=== PATIENT | female | born 1955 | race Native Hawaiian/Other Pacific Islander ===

== ENCOUNTER 2016-12-05 05:49 | Emergency (ER) | payer OTHER ==
[2016-12-05 07:14] LABS: Basophils % (Auto) 1.2 % (0.0-1.8); Hematocrit 40.7 % (30.3-42.9); Hemoglobin 13.5 gm/dl (10.1-14.3); Mean Corpuscular HGB Conc 33 % (30-34); Mean Corpuscular Hemoglobin 29 pg (28-32); Mean Corpuscular Volume 87 fl (79-97); Platelet Count 202 K/mm3 (140-440); Red Blood Count 4.67 M/mm3 (3.65-5.03); Red Cell Distribution Width 13.3 % (13.2-15.2)
[2016-12-05 07:24] LABS: INR 0.87 (0.87-1.13)
[2016-12-05 07:25] LABS: Partial Thromboplastin Time 27.6 Sec. (24.2-36.6)
--- NOTE | 2016-12-05 07:33 | Cat Scan Report ---
FINAL REPORT PROCEDURE: CT HEAD/BRAIN WO CON TECHNIQUE: Computerized tomography of the head was performed without contrast material. HISTORY: HTN, Headache, dizzy, blurred vision, COMPARISON: None FINDINGS: Brain volume is age appropriate. The white matter is intact. There is no intra or extra-axial hemorrhage. There is no CT evident acute infarction. There is no remote infarct. There is no mass effect or shift of midline structures. There is no gross mass or leptomeningeal abnormality given limitation of lack of IV contrast. The skull base and calvarium are intact. Partially visualized paranasal sinuses, mastoid air cells and middle ears are clear. IMPRESSION: No CT evident acute intracranial process
[2016-12-05 07:41] LABS: Bilirubin,Urine NEG (Negative); Blood,Urine NEG (Negative); Ketones,Urine NEG (Negative); Leukocyte Esterase,Urine TR (Negative); Mucus,Urine FEW /HPF; Nitrite,Urine NEG (Negative); Protein,Urine <15 mg/dL mg/dL (Negative); Urobilinogen,Urine < 2.0 mg/dL (<2.0)
[2016-12-05 08:07] LABS: Alanine Aminotransferase 18 units/L (7-56); Albumin 3.9 g/dL (3.9-5); Albumin/Globulin Ratio 1.1 %; Alkaline Phosphatase 108 units/L (35-129); Anion Gap 18 mmol/L; Blood Urea Nitrogen 24 mg/dL (7-17); Calcium 8.9 mg/dL (8.4-10.2); Carbon Dioxide 22 mmol/L (22-30); Chloride 104.2 mmol/L (98-107); Glucose 100 mg/dL (65-100); Lipase 32 units/L (13-60); Potassium 3.8 mmol/L (3.6-5.0); Sodium 140 mmol/L (137-145); Total Protein 7.4 g/dL (6.3-8.2)
--- NOTE | 2016-12-05 10:46 | Emergency Department Report ---
HPI - General Chief Complaint: High BP Time Seen by Provider: 12/05/16 09:36 - HPI HPI: This is a 61-year-old female presents to the emergency department with multiple complaints. The patient has been having some dizziness, shortness of breath, palpitations, paresthesias and posterior headache. The symptoms appeared to worsen when she gets hot or it is hot outside. Also, over the past 3-4 days, patient says that her blood pressure is been elevated. The symptoms appeared to have worsened since the patient had a change in the dose of her Paxil. She takes Paxil as well as hydrochlorothiazide as chronic medications and follows up with a physician through [facility]. She denies any vision change, slurred speech, vomiting, abdominal pain or any neurological deficits. She denies any history of OH, CVA, PE/DVT. The patient currently says that she feels improved. She took some Motrin for her symptoms prior to presentation. No recent travel or sick contacts at home. ED Past Medical Hx - Past Medical History Previous Medical History?: Yes Hx Hypertension: Yes - Surgical History Past Surgical History?: No - Social History Smoking Status: Never Smoker Substance Use Type: None - Medications Home Medications: Home Medications Medication Instructions Recorded Confirmed Last Taken Type ALPRAZolam [Xanax TAB] 0.5 mg PO BID PRN #10 tab 12/05/16 Unknown Rx ED Review of Systems ROS: Stated complaint: HYPERTENSION/HIGH BP Other details as noted in HPI Comment: All other systems reviewed and negative Constitutional: denies: chills, weakness Eyes: denies: eye pain, eye discharge ENT: denies: ear pain, throat pain Respiratory: shortness of breath. denies: cough, wheezing Cardiovascular: chest pain, palpitations. denies: edema Gastrointestinal: denies: abdominal pain, vomiting Genitourinary: denies: urgency, dysuria, discharge Musculoskeletal: denies: back pain, joint swelling, arthralgia Skin: denies: rash, lesions Neurological: headache, paresthesias. denies: weakness, numbness, confusion Physical Exam - Physical Exam Vital Signs: Vital Signs 12/05/16 12/05/16 12/05/16 06:35 09:20 09:38 Temperature 98.7 F 98.3 F Pulse Rate 65 54 L Respiratory 14 12 12 Rate Blood Pressure 143/96 148/76 [Right] O2 Sat by Pulse 100 100 100 Oximetry Physical Exam: GENERAL: The patient is well-developed well-nourished. HEENT: Normocephalic. Atraumatic. Extraocular motions are intact. Patient has moist mucous membranes. Pupils equal reactive to light bilaterally. NECK: Supple. Trachea is midline. CHEST/LUNGS: Clear to auscultation. There is no respiratory distress noted. HEART/CARDIOVASCULAR: Regular. There is no tachycardia. There is no gallop rub or murmur. ABDOMEN: Abdomen is soft, nontender. Patient has normal bowel sounds. There is no abdominal distention. SKIN: Skin is warm and dry. NEURO: The patient is awake, alert, and oriented. The patient is cooperative. The patient has no focal neurologic deficits. The patient has normal speech. Cranial nerves II through XII grossly intact. MUSCULOSKELETAL: There is no tenderness or deformity. There is no limitation range of motion. There is no evidence of acute injury. Muscle strength 5 out of 5 for upper and lower extremities bilaterally. ED Course Vital Signs 12/05/16 12/05/16 12/05/16 06:35 09:20 09:38 Temperature 98.7 F 98.3 F Pulse Rate 65 54 L Respiratory 14 12 12 Rate Blood Pressure 143/96 148/76 [Right] O2 Sat by Pulse 100 100 100 Oximetry ED Medical Decision Making - Lab Data Result diagrams: 12/05/16 06:52 12/05/16 06:52 - EKG Data -: EKG Interpreted by Me EKG shows normal: sinus rhythm (with premature supraventricular complexes), axis , intervals, QRS complexes, ST-T waves Rate: bradycardia (54 bpm) - EKG Data When compared to previous EKG there are: previous EKG unavailable Interpretation: normal EKG (with premature supraventricular complexes) - Radiology Data Radiology results: report reviewed, image reviewed interpreted by me: Chest x-ray did not show any acute process. Heart is normal shape and size. No effusions. No pneumothorax. No signs of pneumonia seen. CT of the head does not show any acute process including no hemorrhage, mass, shift, diffuse edema or skull fracture. - Medical Decision Making 61-year-old female presents with multiple complaints including posterior headache, intermittent chest pains, shortness of breath, feelings of nervousness, dizziness. However on physical examination the patient does not appear to be toxic or in any acute distress. Heart and lungs sounds are normal to auscultation. Cranial nerves are intact. No focal, motor or sensory deficits. EKG is normal without ST elevation OH, ischemia or dysrhythmia. Labs are unremarkable including no signs of infection in the blood or urine, normal thyroid function, no electrolyte abnormalities or renal insufficiency and negative troponins 2. It is possible that the area is some component of anxiety. Patient currently denies any chest pain or shortness of breath. She was seen in the door in the emergency department and appears stable. She appears safe for discharge home at this time. Vital signs stable throughout ED course. She was given a referral for cardiology and already has a primary care physician. She will return to the ER with any worsening of her symptoms or any acute distress. - Differential Diagnosis OH, costochondritis, anxiety, tension headache, migraine Critical Care Time: No Critical care attestation.: If time is entered above; I have spent that time in minutes in the direct care of this critically ill patient, excluding procedure time. ED Disposition Clinical Impression: Paresthesias, Anxiety Headache Qualifiers: Headache type: unspecified Headache chronicity pattern: unspecified pattern Intractability: not intractable Qualified Code(s): R51 - Headache Chest pain Qualifiers: Chest pain type: unspecified Qualified Code(s): R07.9 - Chest pain, unspecified Disposition: DC- TO HOME OR SELFCARE Is pt being admited?: No Condition: Stable Instructions: Chest Pain (ED), Acute Headache (ED), Paresthesia (ED), Anxiety ( ED) Additional Instructions: Please follow-up with your primary care physician in the next few days. I have given you a referral for a local music adapter, to follow-up regarding your intermittent chest pains. Return to the emergency department immediately with any worsening of your symptoms or any acute distress. You've been prescribed a medication that is sedating. Therefore this medication cannot be mixed with alcohol, or taken prior to driving, working, or being responsible for children. Prescriptions: ALPRAZolam [Xanax TAB] 0.5 mg PO BID PRN #10 tab PRN Reason: Anxiety Referrals: PRIMARY CARE, [Primary Care Provider] - 3-5 Days ELENA MAX MD [Staff Physician] - 3-5 Days Time of Disposition: 11:43
[2016-12-05 12:39] VITALS: BP 140/83
--- NOTE | 2016-12-05 14:39 | XRay Report ---
FINAL REPORT PROCEDURE: XR CHEST ROUTINE 2V TECHNIQUE: PA and lateral views of the chest are submitted. HISTORY: Shortness of breath COMPARISON: None FINDINGS: The trachea is midline. The heart is normal in size. The lungs are clear. There is no evident pneumothorax or pleural fluid. The thoracic cage is intact. Mild degenerative thoracic kyphosis is present. IMPRESSION: No radiographically evident acute cardiopulmonary disease
== END 2016-12-05 12:15 | disposition home or self-care (01) ==
LOC: ED 05:49
DX: F41.9 Anxiety disorder, unspecified (principal); R20.9 Unspecified disturbances of skin sensation; I10 Essential (primary) hypertension
CPT/HCPCS: 36415; 70450; 71020; 80053; 81001; 83690; 84443; 84484; 85025; 85610; 85730; 93005; 93010; 99285

== ENCOUNTER 2020-08-05 10:39 | Emergency (ER) | payer SELFPAY ==
[2020-08-05] MEDS ORDERED: SODIUM CHLORIDE 0.9% 1000 ML 1,000 ML IV ONE (10:52)
--- NOTE | 2020-08-05 10:54 | Event Note ---
ED Screening Note Date of service: 08/05/20 Time: 10:53 ED Screening Note: 65-year-old female presents with complaints of cough, chest pain, back pain, diarrhea, intermittent abdominal pain and nausea for the past couple days. She had a negative Covid test. Patient does have a low-grade temperature of 100.6 in triage but she is not tachypneic or hypotensive or hypoxic. This initial assessment/diagnostic orders/clinical plan/treatment(s) is/are subject to change based on patients health status, clinical progression and re- assessment by fellow clinical providers in the ED. Further treatment and workup at subsequent clinical providers discretion. Patient/guardian urged not to elope from the ED as their condition may be serious if not clinically assessed and managed. Initial orders include: CBC, CMP, EKG, troponin, chest x-ray, urinalysis
[2020-08-05 10:55] VITALS: BP 141/87
[2020-08-05 11:19] LABS: Basophils % (Auto) 0.4 % (0.0-1.8); Hematocrit 45.5 % (30.3-42.9); Hemoglobin 15.2 gm/dl (10.1-14.3); Lymphocytes # (Auto) 0.9 K/mm3 (1.2-5.4); Mean Corpuscular HGB Conc 33 % (30-34); Mean Corpuscular Volume 86 fl (79-97); Monocytes # (Auto) 0.3 K/mm3 (0.0-0.8); Monocytes % (Auto) 6.2 % (0.0-7.3); Platelet Count 175 K/mm3 (140-440); Red Blood Count 5.28 M/mm3 (3.65-5.03); Red Cell Distribution Width 13.6 % (13.2-15.2)
[2020-08-05 11:40] LABS: Alanine Aminotransferase 13 units/L (7-56); Albumin 3.5 g/dL (3.9-5); BUN/Creatinine Ratio 13; Blood Urea Nitrogen 14 mg/dL (7-17); Calcium 8.7 mg/dL (8.4-10.2); Hemolysis Index 5
[2020-08-05] MEDS ORDERED: ACETAMINOPHEN 325 MG TAB PO ONE (11:54)
--- NOTE | 2020-08-05 11:54 | Emergency Department Report ---
ED General Adult HPI - General Chief complaint: Fever Stated complaint: CHEST PAINS Time Seen by Provider: 08/05/20 11:25 Source: family Mode of arrival: Ambulatory Limitations: Language Barrier - History of Present Illness Initial comments: Patient is a 65-year-old female presents emergency department for evaluation of dry cough, body aches, nausea without abdominal pain and fevers x1 week. Patient was seen by her primary care doctor who prescribed her omeprazole and antihypertensives. Patient presents for persistent symptoms despite home medication. Patient had Covid test which was resulted as negative with a second test results pending. Patient denies sore throat, denies chest pain, denies vomiting or diarrhea. Patient denies dysuria. - Related Data Previous Rx's Medication Instructions Recorded Last Taken Type ALPRAZolam [Xanax TAB] 0.5 mg PO BID PRN #10 tab 12/05/16 Unknown Rx Cholecalciferol (Vitamin D3) 5,000 unit PO DAILY #60 capsule 08/05/20 Unknown Rx [Vitamin D3 5,000 UNIT] Allergies Allergy/AdvReac Type Severity Reaction Status Date / Time No Known Allergies Allergy Verified 12/05/16 06:32 ED Review of Systems ROS: Stated complaint: CHEST PAINS Other details as noted in HPI Comment: All other systems reviewed and negative ED Past Medical Hx - Past Medical History Previous Medical History?: Yes Hx Hypertension: Yes - Surgical History Past Surgical History?: No - Social History Smoking Status: Never Smoker Substance Use Type: None - Medications Home Medications: Home Medications Medication Instructions Recorded Confirmed Last Taken Type ALPRAZolam [Xanax TAB] 0.5 mg PO BID PRN #10 tab 12/05/16 Unknown Rx Cholecalciferol (Vitamin D3) 5,000 unit PO DAILY #60 capsule 08/05/20 Unknown Rx [Vitamin D3 5,000 UNIT] ED Physical Exam - General Limitations: Language Barrier General appearance: alert, in no apparent distress - Head Head exam: Present: atraumatic, normocephalic - Eye Eye exam: Present: normal appearance - ENT ENT exam: Present: mucous membranes moist - Neck Neck exam: Present: normal inspection - Respiratory Respiratory exam: Present: normal lung sounds bilaterally. Absent: respiratory distress - Cardiovascular Cardiovascular Exam: Present: regular rate, normal rhythm. Absent: systolic murmur, diastolic murmur, rubs, gallop - GI/Abdominal GI/Abdominal exam: Present: soft, normal bowel sounds - Extremities Exam Extremities exam: Present: normal inspection - Back Exam Back exam: Present: normal inspection - Neurological Exam Neurological exam: Present: alert, oriented X3 - Psychiatric Psychiatric exam: Present: normal affect, normal mood - Skin Skin exam: Present: warm, dry, intact, normal color. Absent: rash ED Course Vital Signs 08/05/20 08/05/20 10:53 12:53 Temperature 100.6 F H Pulse Rate 88 Respiratory 18 18 Rate Blood Pressure 141/87 O2 Sat by Pulse 98 Oximetry - Reevaluation(s) Reevaluation #1: 08/05/20 13:10 Patient treated with IV NS 1 L x 1 and Tylenol p.o. ED Medical Decision Making - Lab Data Result diagrams: 08/05/20 11:03 08/05/20 11:03 Vital Signs 08/05/20 08/05/20 10:53 12:53 Temperature 100.6 F H Pulse Rate 88 Respiratory 18 18 Rate Blood Pressure 141/87 O2 Sat by Pulse 98 Oximetry Labs 08/05/20 08/05/20 08/05/20 11:03 11:03 11:36 WBC 4.7 RBC 5.28 H Hgb 15.2 H Hct 45.5 H MCV 86 MCH 29 MCHC 33 RDW 13.6 Plt Count 175 Lymph % (Auto) 20.0 [place] % (Auto) 6.2 Eos % (Auto) 0.0 Baso % (Auto) 0.4 Lymph # (Auto) 0.9 L [place] # (Auto) 0.3 Eos # (Auto) 0.0 Baso # (Auto) 0.0 Seg Neutrophils % 73.4 H Seg Neutrophils # 3.4 Sodium 134 L Potassium 3.8 Chloride 100.4 Carbon Dioxide 24 Anion Gap 13 BUN 14 Creatinine 1.1 Estimated GFR 50 BUN/Creatinine Ratio 13 Glucose 101 H Calcium 8.7 Total Bilirubin 0.40 AST 24 ALT 13 Alkaline Phosphatase 92 Troponin T < 0.010 Total Protein 7.1 Albumin 3.5 L Albumin/Globulin Ratio 1.0 Lipase 33 Urine Color Urine Turbidity Urine pH Ur Specific [place] Urine Protein Urine Glucose (UA) Urine Ketones Urine Blood Urine Nitrite Urine Bilirubin Urine Urobilinogen Ur Leukocyte Esterase Urine WBC (Auto) Urine RBC (Auto) U Epithel Cells (Auto) Urine Mucus 08/05/20 12:48 WBC RBC Hgb Hct MCV MCH MCHC RDW Plt Count Lymph % (Auto) [place] % (Auto) Eos % (Auto) Baso % (Auto) Lymph # (Auto) [place] # (Auto) Eos # (Auto) Baso # (Auto) Seg Neutrophils % Seg Neutrophils # Sodium Potassium Chloride Carbon Dioxide Anion Gap BUN Creatinine Estimated GFR BUN/Creatinine Ratio Glucose Calcium Total Bilirubin AST ALT Alkaline Phosphatase Troponin T Total Protein Albumin Albumin/Globulin Ratio Lipase Urine Color Yellow Urine Turbidity Clear Urine pH 5.0 Ur Specific [place] 1.015 Urine Protein 30 mg/dl Urine Glucose (UA) Neg Urine Ketones Neg Urine Blood Neg Urine Nitrite Neg Urine Bilirubin Neg Urine Urobilinogen < 2.0 Ur Leukocyte Esterase Neg Urine WBC (Auto) 2.0 Urine RBC (Auto) 1.0 U Epithel Cells (Auto) < 1.0 Urine Mucus Few - EKG Data -: EKG Interpreted by Me (Sinus rhythm at 80, no ST-T changes, normal QRS) - Radiology Data Radiology results: report reviewed Chest x-ray negative per radiology Critical care attestation.: If time is entered above; I have spent that time in minutes in the direct care of this critically ill patient, excluding procedure time. ED Disposition Clinical Impression: Upper respiratory infection Disposition: DC-01 TO HOME OR SELFCARE Is pt being admited?: No Condition: Stable Instructions: Upper Respiratory Infection, Adult, [id number] Prescriptions: Cholecalciferol (Vitamin D3) [Vitamin D3 5,000 UNIT] 5,000 unit PO DAILY #60 capsule Referrals: PRIMARY CARE, [Primary Care Provider] - 3-5 Days Print Language: CHINESE
--- NOTE | 2020-08-05 12:06 | XRay Report ---
CHEST 1 VIEW 08/05/2020 11:48 AM INDICATION / CLINICAL INFORMATION: Cough. COMPARISON: 12/05/2016 FINDINGS: SUPPORT DEVICES: None. HEART / MEDIASTINUM: No significant abnormality. LUNGS / PLEURA: No significant pulmonary or pleural abnormality. No pneumothorax. ADDITIONAL FINDINGS: No significant additional findings. IMPRESSION: 1. No acute findings. Signer Name: Arben Degroot MD Signed: 08/05/2020 12:01 PM Workstation Name: [id number]
[2020-08-05 13:01] LABS: Bilirubin,Urine NEG (Negative); Blood,Urine NEG (Negative); Color,Urine Yellow (Yellow); Mucus,Urine FEW /HPF; Urobilinogen,Urine < 2.0 mg/dL (<2.0)
== END 2020-08-05 15:06 | disposition home or self-care (01) ==
LOC: ED 10:39
DX: J06.9 Acute upper respiratory infection, unspecified (principal); I10 Essential (primary) hypertension; Z79.899 Other long term (current) drug therapy
CPT/HCPCS: 36415; 71045; 80053; 81001; 83690; 84484; 85025; 93005; 96360; 96361; 99284; J7030

== ENCOUNTER 2020-08-07 07:28 | Emergency (ER) | payer SELFPAY ==
--- NOTE | 2020-08-07 07:36 | Emergency Department Report ---
Blank Doc - Documentation Documentation: 65 yr old with pmhx of htn c/o chest pain/back pain/sob; was found to be COVID + yesterday Orders include: Chest pain order set
[2020-08-07] MEDS ORDERED: ACETAMINOPHEN 500 MG TAB PO ONE (07:47)
[2020-08-07] MEDS ORDERED: SODIUM CHLORIDE 0.9% 1000 ML 1,000 ML IV ONE (07:47)
--- NOTE | 2020-08-07 07:48 | Emergency Department Report ---
ED General Adult HPI - General Chief complaint: Chest Pain Stated complaint: COVID POSITIVE/CHEST PAIN Time Seen by Provider: 08/07/20 07:46 Source: patient Mode of arrival: Ambulatory Limitations: No Limitations - History of Present Illness Initial comments: Patient is a 65-year-old female presents emergency department for evaluation of mild vague diffuse chest discomfort and dry cough in the context of recent Covid positive testing as outpatient. Patient denies shortness of breath, complains of tactile fever, denies sore throat, denies abdominal pain, denies nausea vomiting diarrhea. - Related Data Previous Rx's Medication Instructions Recorded Last Taken Type ALPRAZolam [Xanax TAB] 0.5 mg PO BID PRN #10 tab 12/05/16 Unknown Rx Cholecalciferol (Vitamin D3) 5,000 unit PO DAILY #60 capsule 08/05/20 Unknown Rx [Vitamin D3 5,000 UNIT] Azithromycin [Zithromax TAB] 250 mg PO QDAY 4 Days #4 tablet 08/07/20 Unknown Rx predniSONE [Deltasone] 40 mg PO QDAY #8 tablet 08/07/20 Unknown Rx Allergies Allergy/AdvReac Type Severity Reaction Status Date / Time No Known Allergies Allergy Verified 08/07/20 07:30 ED Review of Systems ROS: Stated complaint: COVID POSITIVE/CHEST PAIN Other details as noted in HPI Comment: All other systems reviewed and negative ED Past Medical Hx - Past Medical History Hx Hypertension: Yes - Social History Smoking Status: Never Smoker Substance Use Type: None - Medications Home Medications: Home Medications Medication Instructions Recorded Confirmed Last Taken Type ALPRAZolam [Xanax TAB] 0.5 mg PO BID PRN #10 tab 12/05/16 Unknown Rx Cholecalciferol (Vitamin D3) 5,000 unit PO DAILY #60 capsule 08/05/20 Unknown Rx [Vitamin D3 5,000 UNIT] Azithromycin [Zithromax TAB] 250 mg PO QDAY 4 Days #4 tablet 08/07/20 Unknown Rx predniSONE [Deltasone] 40 mg PO QDAY #8 tablet 08/07/20 Unknown Rx ED Physical Exam - General Limitations: No Limitations General appearance: alert, in no apparent distress - Head Head exam: Present: atraumatic, normocephalic - Eye Eye exam: Present: normal appearance - ENT ENT exam: Present: mucous membranes moist - Neck Neck exam: Present: normal inspection - Respiratory Respiratory exam: Present: normal lung sounds bilaterally - Cardiovascular Cardiovascular Exam: Present: regular rate, normal rhythm - GI/Abdominal GI/Abdominal exam: Present: soft, normal bowel sounds - Extremities Exam Extremities exam: Present: normal inspection - Back Exam Back exam: Present: normal inspection - Neurological Exam Neurological exam: Present: alert, oriented X3 - Psychiatric Psychiatric exam: Present: normal affect, normal mood - Skin Skin exam: Present: warm, dry, intact, normal color. Absent: rash ED Course Vital Signs 08/07/20 08/07/20 08/07/20 07:32 07:33 08:36 Temperature 100.7 F H 100.7 F H Pulse Rate 125 H 124 H 94 H Respiratory 22 20 19 Rate Blood Pressure 128/95 128/95 Blood Pressure 134/74 [Left] O2 Sat by Pulse 95 95 98 Oximetry 08/07/20 08/07/20 08/07/20 08:45 09:01 09:15 Temperature Pulse Rate 89 65 64 Respiratory 13 13 15 Rate Blood Pressure 126/71 Blood Pressure [Left] O2 Sat by Pulse 99 100 98 Oximetry 08/07/20 09:43 Temperature 99.5 F Pulse Rate Respiratory Rate Blood Pressure Blood Pressure [Left] O2 Sat by Pulse Oximetry - Reevaluation(s) Reevaluation #1: 08/07/20 14:44 Patient treated with IV NS and Tylenol p.o. with resolution of tachycardia. Repeat pulse 69. Reevaluation #2: 08/07/20 14:45 Treated with azithromycin 500 mg p.o. x1 ED Medical Decision Making - Lab Data Result diagrams: 08/07/20 08:25 08/07/20 08:25 Lab Results 08/07/20 08/07/20 Range/Units 08:25 08:25 WBC 5.9 (4.5-11.0) K/mm3 RBC 5.13 H (3.65-5.03) M/mm3 Hgb 14.7 H (10.1-14.3) gm/dl Hct 43.3 H (30.3-42.9) % MCV 84 (79-97) fl MCH 29 (28-32) pg MCHC 34 (30-34) % RDW 13.9 (13.2-15.2) % Plt Count 198 (140-440) K/mm3 Lymph % (Auto) 12.5 L (13.4-35.0) % [place] % (Auto) 5.8 (0.0-7.3) % Eos % (Auto) 0.0 (0.0-4.3) % Baso % (Auto) 0.2 (0.0-1.8) % Lymph # (Auto) 0.7 L (1.2-5.4) K/mm3 [place] # (Auto) 0.3 (0.0-0.8) K/mm3 Eos # (Auto) 0.0 (0.0-0.4) K/mm3 Baso # (Auto) 0.0 (0.0-0.1) K/mm3 Seg Neutrophils % 81.5 H (40.0-70.0) % Seg Neutrophils # 4.8 (1.8-7.7) K/mm3 Sodium 139 (137-145) mmol/L Potassium 3.6 (3.6-5.0) mmol/L Chloride 102.7 (98-107) mmol/L Carbon Dioxide 25 (22-30) mmol/L Anion Gap 15 mmol/L BUN 8 (7-17) mg/dL Creatinine 0.8 (0.6-1.2) mg/dL Estimated GFR > 60 ml/min BUN/Creatinine Ratio 10 % Glucose 110 H (65-100) mg/dL Calcium 8.8 (8.4-10.2) mg/dL Total Bilirubin 0.50 (0.1-1.2) mg/dL AST 27 (5-40) units/L ALT 14 (7-56) units/L Alkaline Phosphatase 90 (35-129) units/L Troponin T < 0.010 (0.00-0.029) ng/mL Total Protein 7.3 (6.3-8.2) g/dL Albumin 3.7 L (3.9-5) g/dL Albumin/Globulin Ratio 1.0 % Lipase 32 (13-60) units/L Vital Signs 08/07/20 08/07/20 08/07/20 07:32 07:33 08:36 Temperature 100.7 F H 100.7 F H Pulse Rate 125 H 124 H 94 H Respiratory 22 20 19 Rate Blood Pressure 128/95 128/95 Blood Pressure 134/74 [Left] O2 Sat by Pulse 95 95 98 Oximetry 03/04/1908/07/20 08/07/20 08:45 09:01 09:15 Temperature Pulse Rate 89 65 64 Respiratory 13 13 15 Rate Blood Pressure 126/71 Blood Pressure [Left] O2 Sat by Pulse 99 100 98 Oximetry 08/07/20 09:43 Temperature 99.5 F Pulse Rate Respiratory Rate Blood Pressure Blood Pressure [Left] O2 Sat by Pulse Oximetry - EKG Data -: EKG Interpreted by Me (ST at 103, (-) ST-T changes, normal QRs) - Radiology Data Radiology results: report reviewed <HTML><META HTTP-EQUIV="content-type" CONTENT="text/html;charset=utf-8"> [facility] [address] [place] [address] XRay Report Signed Patient: HETAL HOLLAND MR#: [id number] : 1955 Acct:[id number] Age/Sex: 65 / F ADM Date: 08/07/20 Loc: ED Attending Dr: Ordering Physician: TANVI ELMORE Date of Service: 08/07/20 Procedure(s): XR chest 1V ap Accession Number(s): [id number] cc: TANVI ELMORE Fluoro Time In Minutes: CHEST 1 VIEW INDICATION: Covid +/chest pain/sob. COMPARISON: 2 days prior FINDINGS: SUPPORT DEVICES: None. HEART: Within normal limits. LUNGS/PLEURA: Although mild, there is worsened patchy bibasilar airspace dis ease. No effusion. ADDITIONAL FINDINGS: None. IMPRESSION: 1. Pulmonary findings as above can be seen with Covid pneumonia. Signer Name: Thee Newell MD Signed: 08/07/2020 8:41 AM Workstation Name: [id number] Transcribed By: BEBETO Dictated By: Thee Newell MD Electronically Authenticated By: Thee Newell MD Signed Date/Time: 08/07/20 0841 Critical care attestation.: If time is entered above; I have spent that time in minutes in the direct care of this critically ill patient, excluding procedure time. ED Disposition Clinical Impression: Pneumonia due to COVID-19 virus Disposition: DC- TO HOME OR SELFCARE Is pt being admited?: No Condition: Stable Instructions: COVID-19 Frequently Asked Questions, Prevent the Spread of COVID- 19 if You Are Sick - CDC, Bacterial Pneumonia (ED) Prescriptions: predniSONE [Deltasone] 40 mg PO QDAY #8 tablet Azithromycin [Zithromax TAB] 250 mg PO QDAY 4 Days #4 tablet Referrals: PRIMARY CARE,MD [Primary Care Provider] - 3-5 Days Print Language: ARMENIAN
[2020-08-07 08:45] LABS: Basophils % (Auto) 0.2 % (0.0-1.8); Hematocrit 43.3 % (30.3-42.9); Hemoglobin 14.7 gm/dl (10.1-14.3); Lymphocytes # (Auto) 0.7 K/mm3 (1.2-5.4); Lymphocytes % (Auto) 12.5 % (13.4-35.0); Mean Corpuscular HGB Conc 34 % (30-34); Mean Corpuscular Volume 84 fl (79-97); Monocytes # (Auto) 0.3 K/mm3 (0.0-0.8); Monocytes % (Auto) 5.8 % (0.0-7.3); Platelet Count 198 K/mm3 (140-440); Red Blood Count 5.13 M/mm3 (3.65-5.03); Red Cell Distribution Width 13.9 % (13.2-15.2)
--- NOTE | 2020-08-07 08:46 | XRay Report ---
CHEST 1 VIEW INDICATION: Covid +/chest pain/sob. COMPARISON: 2 days prior FINDINGS: SUPPORT DEVICES: None. HEART: Within normal limits. LUNGS/PLEURA: Although mild, there is worsened patchy bibasilar airspace disease. No effusion. ADDITIONAL FINDINGS: None. IMPRESSION: 1. Pulmonary findings as above can be seen with Covid pneumonia. Signer Name: Thee Newell MD Signed: 08/07/2020 8:41 AM Workstation Name: [id number]
[2020-08-07 09:07] LABS: Alanine Aminotransferase 14 units/L (7-56); Albumin 3.7 g/dL (3.9-5); BUN/Creatinine Ratio 10; Blood Urea Nitrogen 8 mg/dL (7-17); Calcium 8.8 mg/dL (8.4-10.2); Hemolysis Index 6
[2020-08-07] MEDS ORDERED: predniSONE 20 MG TAB PO ONE (09:20)
[2020-08-07] MEDS ORDERED: AZITHROMYCIN 250 MG TAB PO ONE (09:20)
[2020-08-07 09:43] VITALS: BP 126/71
== END 2020-08-07 09:45 | disposition home or self-care (01) ==
LOC: ED 07:28
DX: J12.82 Pneumonia due to coronavirus disease 2019 (principal); I10 Essential (primary) hypertension; Z79.899 Other long term (current) drug therapy
CPT/HCPCS: 36415; 71045; 80053; 83690; 84484; 85025; 93005; 96360; 99284; J7030; J7512

== ENCOUNTER 2020-08-09 22:03 | Observation (INO) | payer OTHER, SELFPAY ==
--- NOTE | 2020-08-09 23:26 | Emergency Department Report ---
ED Shortness of Breath HPI - General Chief Complaint: Chest Pain Stated Complaint: HIGH BLOOD PRESSURE Time Seen by Provider: 08/09/20 23:09 Source: patient Mode of arrival: Ambulatory Limitations: No Limitations - History of Present Illness Initial Comments: Patient is 65 years old female with history of hypertension. Patient presented to the ER complaining of shortness of breath, diffuse chest pain and dry cough for the last 5 days. Patient stated that her symptoms get worse last night. Patient was seen here twice and sent home. Patient tested positive for COVID-19 6 days ago. Chest x-ray in the ER for both results showed bilateral lower lobe infiltrates consistent with COVID-19 however the last chest x-ray showed worsening of the infiltration. Patient also complaining of decreased appetite however she denied any vomiting or diarrhea. MD Complaint: shortness of breath, cough, chest pain -: days(s) Severity: moderate Context: recent URI - Related Data Home Medications Medication Instructions Recorded Confirmed Last Taken Losartan [Cozaar] 25 mg PO QDAY 08/11/20 08/11/20 Unknown Previous Rx's Medication Instructions Recorded Last Taken Type ALPRAZolam [Xanax TAB] 0.5 mg PO BID PRN #10 tab 12/05/16 Unknown Rx Cholecalciferol (Vitamin D3) 5,000 unit PO DAILY #60 capsule 08/05/20 Unknown Rx [Vitamin D3 5,000 UNIT] Azithromycin [Zithromax TAB] 250 mg PO QDAY 4 Days #4 tablet 08/07/20 Unknown Rx predniSONE [Deltasone] 40 mg PO QDAY #8 tablet 08/07/20 Unknown Rx Allergies Allergy/AdvReac Type Severity Reaction Status Date / Time No Known Allergies Allergy Verified 08/07/20 07:30 ED Review of Systems ROS: Stated complaint: HIGH BLOOD PRESSURE Other details as noted in HPI Comment: All other systems reviewed and negative Constitutional: chills, fever Respiratory: cough, shortness of breath, SOB with exertion, SOB at rest. denies: orthopnea, wheezing Cardiovascular: chest pain. denies: palpitations Gastrointestinal: nausea. denies: abdominal pain, vomiting, diarrhea, constipation, hematemesis, melena, hematochezia Musculoskeletal: denies: back pain Neurological: denies: headache, weakness, numbness, paresthesias, confusion ED Past Medical Hx - Past Medical History Previous Medical History?: Yes Hx Hypertension: Yes Hx Psychiatric Treatment: Yes (Anxiety) Additional medical history: Chronic Pain - Surgical History Past Surgical History?: No - Social History Smoking Status: Never Smoker Substance Use Type: None - Medications Home Medications: Home Medications Medication Instructions Recorded Confirmed Last Taken Type ALPRAZolam [Xanax TAB] 0.5 mg PO BID PRN #10 tab 12/05/16 08/11/20 Unknown Rx Cholecalciferol (Vitamin D3) 5,000 unit PO DAILY #60 capsule 08/05/20 08/11/20 Unknown Rx [Vitamin D3 5,000 UNIT] Azithromycin [Zithromax TAB] 250 mg PO QDAY 4 Days #4 tablet 08/07/20 08/11/20 Unknown Rx predniSONE [Deltasone] 40 mg PO QDAY #8 tablet 08/07/20 08/11/20 Unknown Rx Losartan [Cozaar] 25 mg PO QDAY 08/11/20 08/11/20 Unknown History ED Physical Exam - General Limitations: No Limitations General appearance: alert, anxious, in distress - Head Head exam: Present: atraumatic, normocephalic, normal inspection - Eye Eye exam: Present: normal appearance, PERRL - ENT ENT exam: Present: mucous membranes dry - Neck Neck exam: Present: normal inspection, full ROM. Absent: tenderness, meningismus - Respiratory Respiratory exam: Present: rales, decreased breath sounds. Absent: respiratory distress, prolonged expiratory - Cardiovascular Cardiovascular Exam: Present: regular rate, normal rhythm, normal heart sounds - GI/Abdominal GI/Abdominal exam: Present: soft, normal bowel sounds. Absent: distended, tenderness, guarding, rebound, rigid, organomegaly, mass, bruit, pulsatile mass, hernia - Extremities Exam Extremities exam: Present: normal inspection, full ROM, normal capillary refill. Absent: pedal edema, calf tenderness - Back Exam Back exam: Present: normal inspection, full ROM. Absent: CVA tenderness (R), CVA tenderness (L) - Neurological Exam Neurological exam: Present: alert, oriented X3, CN II-XII intact - Psychiatric Psychiatric exam: Present: normal mood - Skin Skin exam: Present: warm, intact, normal color ED Course Vital Signs 08/09/20 08/10/20 08/10/20 22:09 00:00 03:10 Temperature 99.3 F 98.9 F Pulse Rate 76 78 Respiratory 18 20 20 Rate Blood Pressure 142/90 Blood Pressure 144/89 [Left] O2 Sat by Pulse 96 96 Oximetry ED Medical Decision Making - Lab Data Result diagrams: 08/11/20 05:32 08/11/20 05:32 - EKG Data -: EKG Interpreted by Me EKG shows normal: sinus rhythm Rate: normal - EKG Data Interpretation: no acute changes - Radiology Data Radiology results: report reviewed - Medical Decision Making Patient is 65 years old female with history of hypertension. Patient presented to the ER complaining of shortness of breath, diffuse chest pain and dry cough for the last 5 days. Patient stated that her symptoms get worse last night. Patient was seen here twice and sent home. Patient tested positive for COVID-19 6 days ago. Chest x-ray in the ER for both results showed bilateral lower lobe infiltrates consistent with COVID-19 however the last chest x-ray showed worsening of the infiltration. Patient also complaining of decreased appetite however she denied any vomiting or diarrhea. EKG is unremarkable. Chest x-ray showed bilateral lower lobe infiltrate consistent with COVID-19 pneumonia. Patient received Rocephin 1 g, Zithromax 500 mg and Decadron 8 mg IV. Labs reviewed and is unremarkable. I discussed the patient with Dr. Laird, he agreed to admit the patient to medical service for further management. Critical care attestation.: If time is entered above; I have spent that time in minutes in the direct care of this critically ill patient, excluding procedure time. ED Disposition Clinical Impression: Pneumonia due to COVID-19 virus Disposition: OP ADMIT IP TO THIS HOSP Is pt being admited?: Yes Condition: Stable
--- NOTE | 2020-08-09 23:38 | XRay Report ---
XR chest 1V ap INDICATION / CLINICAL INFORMATION: Chest Pain. COMPARISON: Radiograph from two days prior. FINDINGS: SUPPORT DEVICES: None. HEART / MEDIASTINUM: Unchanged. LUNGS / PLEURA: Persistent left midlung zone and right basilar opacities which appear mildly improved . No pneumothorax. ADDITIONAL FINDINGS: No significant additional findings. IMPRESSION: 1. Persistent but mildly improved airspace disease. Signer Name: Clyde Harmon MD Signed: 08/09/2020 11:33 PM Workstation Name: [id number]
[2020-08-10 01:06] LABS: BUN/Creatinine Ratio 23; Blood Urea Nitrogen 23 mg/dL (7-17); Calcium 8.3 mg/dL (8.4-10.2); Hemolysis Index 6
[2020-08-10 01:09] LABS: Basophils % (Auto) 0.1 % (0.0-1.8); Hematocrit 39.6 % (30.3-42.9); Hemoglobin 13.5 gm/dl (10.1-14.3); Lymphocytes # (Auto) 1.3 K/mm3 (1.2-5.4); Lymphocytes % (Auto) 16.6 % (13.4-35.0); Mean Corpuscular HGB Conc 34 % (30-34); Mean Corpuscular Volume 85 fl (79-97); Monocytes # (Auto) 0.6 K/mm3 (0.0-0.8); Monocytes % (Auto) 7.7 % (0.0-7.3); Platelet Count 243 K/mm3 (140-440); Red Blood Count 4.67 M/mm3 (3.65-5.03); Red Cell Distribution Width 13.7 % (13.2-15.2)
[2020-08-10 01:20] LABS: INR 1.02 (0.87-1.13)
[2020-08-10 01:21] LABS: Partial Thromboplastin Time 26.9 Sec. (24.2-36.6)
[2020-08-10] MEDS ORDERED: ACETAMINOPHEN 325 MG TAB PO PRN (03:05)
[2020-08-10] MEDS ORDERED: MORPHINE 2 MG/1 ML INJ IV PRN (03:05)
[2020-08-10] MEDS ORDERED: MAGNESIUM HYDROXIDE (MOM) ORAL LIQD UDC PO PRN (03:05)
--- NOTE | 2020-08-10 03:17 | History and Physical Report ---
History of Present Illness Date of examination: 08/10/20 Date of admission: 08/10/20 01:41 Chief complaint: Shortness of breath Cough History of present illness: 65-year-old female with known history of hypertension and anxiety presenting to the emergency room today complaining of shortness of breath, cough dry cough and some chest pain over the last 5 days. Patient has been in the emergency room on 2 occasions with similar complaints and sent to my for evaluation. He was diagnosed with COVID-19 less than a week ago and chest x-ray done in the ER showed bilateral lower lobe infiltrates consistent with COVID-19. Patient is here today complaining of worsening symptoms. She has had decreased appetite. She denies any vomiting or diarrhea. No abdominal pain. Work-up today, chest x-ray reveals persistent but mildly improved airspace disease. Patient has been admitted with pneumonia secondary to COVID-19. Past History Past Medical History: hypertension, other (Anxiety, chronic pain) Past Surgical History: No surgical history Social history: no significant social history Family history: no significant family history Medications and Allergies Allergies Allergy/AdvReac Type Severity Reaction Status Date / Time No Known Allergies Allergy Verified 08/07/20 07:30 Home Medications Medication Instructions Recorded Confirmed Last Taken Type ALPRAZolam [Xanax TAB] 0.5 mg PO BID PRN #10 tab 12/05/16 08/10/20 Unknown Rx Cholecalciferol (Vitamin D3) 5,000 unit PO DAILY #60 capsule 08/05/20 08/10/20 Unknown Rx [Vitamin D3 5,000 UNIT] Azithromycin [Zithromax TAB] 250 mg PO QDAY 4 Days #4 tablet 08/07/20 08/10/20 Unknown Rx predniSONE [Deltasone] 40 mg PO QDAY #8 tablet 08/07/20 08/10/20 Unknown Rx Active Meds: Active Medications Acetaminophen (Acetaminophen 325 Mg Tab) 650 mg PO Q4H PRN PRN Reason: Pain MILD(1-3)/Fever >100.5/ESPINO Enoxaparin Sodium (Enoxaparin 40 Mg/0.4 Ml Inj) 40 mg SUB-Q QDAY@2200 SILVIA; Protocol Ceftriaxone Sodium (Rocephin/Ns 2 Gm/100 Ml) 2 gm in 100 mls @ 200 mls/hr IV Q24H SILVIA; Protocol Azithromycin (Zithromax/Ns) 500 mg in 250 mls @ 250 mls/hr IV Q24H SILVIA; Protoco l Magnesium Hydroxide (Magnesium Hydroxide (Mom) Oral Liqd Udc) 30 ml PO Q4H PRN PRN Reason: Constipation Morphine Sulfate (Morphine 2 Mg/1 Ml Inj) 2 mg IV Q4H PRN PRN Reason: Pain, Moderate (4-6) Ondansetron HCl (Ondansetron 4 Mg/2 Ml Inj) 4 mg IV Q8H PRN PRN Reason: Nausea And Vomiting Sodium Chloride (Sodium Chloride 0.9% 10 Ml Flush Syringe) 10 ml IV BID SILVIA Sodium Chloride (Sodium Chloride 0.9% 10 Ml Flush Syringe) 10 ml IV PRN PRN PRN Reason: LINE FLUSH Review of Systems Constitutional: fever, chills Ears, nose, mouth and throat: no nasal congestion, no sore throat Cardiovascular: no chest pain, no palpitations Respiratory: no cough, no dyspnea on exertion Exam - Constitutional Vitals: Temp Pulse Resp BP Pulse Ox 98.9 F 78 20 144/89 96 08/10/20 03:10 08/10/20 03:10 08/10/20 03:10 08/10/20 03:10 08/10/20 03:10 General appearance: Present: no acute distress, well-nourished - EENT Eyes: Present: PERRL, EOM intact. Absent: scleral icterus ENT: hearing intact, clear oral mucosa, dentition normal - Neck Neck: Present: supple, normal ROM - Respiratory Respiratory effort: normal Respiratory: bilateral: diminished - Cardiovascular Rhythm: regular Heart Sounds: Present: S1 & S2. Absent: systolic murmur, diastolic murmur, rub, click - Extremities Extremities: no ischemia, pulses intact, pulses symmetrical, No edema, normal temperature, normal color, Full ROM Extremity abnormal: edema, cyanosis - Abdominal General gastrointestinal: Present: soft, non-tender, non-distended, normal bowel sounds. Absent: mass - Integumentary Integumentary: Present: clear, warm, dry. Absent: rash - Musculoskeletal Musculoskeletal: strength equal bilaterally - Psychiatric Psychiatric: appropriate mood/affect, intact judgment & insight, memory intact, cooperative - Neurologic Neurologic: CNII-XII intact, no focal deficits, moves all extremities HEART Score - HEART Score Troponin: Troponin T < 0.010 ng/mL (0.00-0.029) 08/09/20 23:53 Results - Labs CBC & Chem 7: 08/09/20 23:53 08/10/20 03:22 Labs: Abnormal lab results 08/09/20 08/09/20 Range/Units 23:53 23:53 [place] % (Auto) 7.7 H (0.0-7.3) % Seg Neutrophils % 75.6 H (40.0-70.0) % Potassium 3.4 L (3.6-5.0) mmol/L BUN 23 H (7-17) mg/dL Calcium 8.3 L (8.4-10.2) mg/dL Assessment and Plan - Patient Problems (1) Pneumonia due to COVID-19 virus Current Visit: Yes Status: Acute Plan to address problem: Patient admitted and placed on antibiotics and steroid. She has been placed on isolation precautions. We will consult to infectious disease for evaluation. (2) DVT prophylaxis Current Visit: Yes Status: Acute Plan to address problem: Patient placed on subcutaneous Lovenox. (3) Full code status Current Visit: Yes Status: Acute Plan to address problem: Patient is full code.
[2020-08-10] MEDS ORDERED: AZITHROMYCIN/NS 500 MG/250 ML 500 MG/250 ML BAG IV SCH (04:00)
[2020-08-10 04:29] LABS: C-Reactive Protein 3.3 mg/dL (0.00-1.30)
[2020-08-10] MEDS: cefTRIAXone/NS 2 GM/100 ML 2 GM/100 ML BAG IV SCH (04:44)
--- NOTE | 2020-08-10 11:10 | Event Note ---
Date: 08/10/20 Patient was seen and evaluated this morning. Patient admitted for PUI. Patient was off oxygen. Patient has some nausea. Patient was admitted earlier this morning and continue management as outlined in HPI. Follow Covid result.
[2020-08-10] MEDS: ONDANSETRON 4 MG/2 ML INJ IV PRN ×2 (11:29→21:43)
--- NOTE | 2020-08-10 11:50 | Consultation ---
History of Present Illness - Reason for Consult Consult date: 08/10/20 COVID Requesting physician: CHRIS BERUMEN - History of Present Illness The patient is a 65-year-old female with hypertension and anxiety was admitted to the hospital with complaints of shortness of breath and cough for 5 days. She had been to the emergency room prior with similar complaints. Chest x-ray showed findings concerning for bilateral pneumonia concerning for COVID-19. She has low-grade fever, currently is on room air. Labs revealed CRP 3.3, ferritin 496, LDH 334, D-dimer 612, normal WBC Review of Systems: reviewed in the chart, unable to obtain, minimize risk of transmission Past History Past Medical History: hypertension, other (Anxiety, chronic pain) Past Surgical History: No surgical history Social history: no significant social history Family history: no significant family history Medications and Allergies Allergies Allergy/AdvReac Type Severity Reaction Status Date / Time No Known Allergies Allergy Verified 08/07/20 07:30 Home Medications Medication Instructions Recorded Confirmed Last Taken Type ALPRAZolam [Xanax TAB] 0.5 mg PO BID PRN #10 tab 12/05/16 08/10/20 Unknown Rx Cholecalciferol (Vitamin D3) 5,000 unit PO DAILY #60 capsule 08/05/20 08/10/20 Unknown Rx [Vitamin D3 5,000 UNIT] Azithromycin [Zithromax TAB] 250 mg PO QDAY 4 Days #4 tablet 08/07/20 08/10/20 Unknown Rx predniSONE [Deltasone] 40 mg PO QDAY #8 tablet 08/07/20 08/10/20 Unknown Rx Active Meds: Active Medications Acetaminophen (Acetaminophen 325 Mg Tab) 650 mg PO Q4H PRN PRN Reason: Pain MILD(1-3)/Fever >100.5/ESPINO Enoxaparin Sodium (Enoxaparin 40 Mg/0.4 Ml Inj) 40 mg SUB-Q QDAY@2200 SILVIA; Protocol Ceftriaxone Sodium (Rocephin/Ns 2 Gm/100 Ml) 2 gm in 100 mls @ 200 mls/hr IV Q24H SILVIA; Protocol Last Admin: 08/10/20 04:44 Dose: 200 mls/hr Documented by: Azithromycin (Zithromax/Ns) 500 mg in 250 mls @ 250 mls/hr IV Q24H SILVIA; Protocol Last Admin: 08/10/20 05:20 Dose: 250 mls/hr Documented by: Magnesium Hydroxide (Magnesium Hydroxide (Mom) Oral Liqd Udc) 30 ml PO Q4H PRN PRN Reason: Constipation Morphine Sulfate (Morphine 2 Mg/1 Ml Inj) 2 mg IV Q4H PRN PRN Reason: Pain, Moderate (4-6) Ondansetron HCl (Ondansetron 4 Mg/2 Ml Inj) 4 mg IV Q8H PRN PRN Reason: Nausea And Vomiting Last Admin: 08/10/20 11:29 Dose: 4 mg Documented by: Sodium Chloride (Sodium Chloride 0.9% 10 Ml Flush Syringe) 10 ml IV BID SILVIA Last Admin: 08/10/20 11:29 Dose: 10 ml Documented by: Sodium Chloride (Sodium Chloride 0.9% 10 Ml Flush Syringe) 10 ml IV PRN PRN PRN Reason: LINE FLUSH Physical Examination - Physical Exam Narrative exam: Physical Exam (reviewed in chart to minimize risk of transmission) Constitutional: deferred Head, Ears, Nose: deferred Eyes: deferred Neck: deferred Oral: deferred Cardiovascular: deferred Respiratory: deferred GI: deferred Musculoskeletal: deferred Skin: deferred Hem/Lymphatic: deferred Psych: deferred Neurological: deferred - Constitutional Vitals: Vital Signs Temp Pulse Resp BP Pulse Ox 98.5 F 59 L 18 152/78 98 08/10/20 04:13 08/10/20 04:13 08/10/20 04:13 08/10/20 04:13 08/10/20 04:13 Temperature -Last 24 Hours Temperature 98.5 F Temperature 98.9 F Temperature 99.3 F Results - Labs CBC & Chem 7: 08/09/20 23:53 08/10/20 03:22 Labs: Abnormal lab results 08/09/20 08/09/20 08/10/20 Range/Units 23:53 23:53 03:22 [place] % (Auto) 7.7 H (0.0-7.3) % Seg Neutrophils % 75.6 H (40.0-70.0) % D-Dimer 612.51 H (0-234) ng/mlDDU Potassium 3.4 L (3.6-5.0) mmol/L BUN 23 H (7-17) mg/dL Calcium 8.3 L (8.4-10.2) mg/dL Ferritin (10.0-200.0) ng/mL Lactate Dehydrogenase (91-180) units/L C-Reactive Protein (0.00-1.30) mg/dL 08/10/20 08/10/20 Range/Units 03:22 03:22 [place] % (Auto) (0.0-7.3) % Seg Neutrophils % (40.0-70.0) % D-Dimer (0-234) ng/mlDDU Potassium (3.6-5.0) mmol/L BUN (7-17) mg/dL Calcium (8.4-10.2) mg/dL Ferritin 496.7 H (10.0-200.0) ng/mL Lactate Dehydrogenase 334 H (91-180) units/L C-Reactive Protein 3.30 H (0.00-1.30) mg/dL - Imaging and Cardiology Chest x-ray: report reviewed, image reviewed Assessment and Plan Cultures: SARS CoV2 PCR: Pending A/P: 65-year-old female with hypertension and anxiety: #Bilateral pneumonia: Likely secondary to COVID-19. Patient not hypoxic. Recs: -Follow-up COVID-19 PCR -Monitor oxygen saturations, if patient develops hypoxia requiring supplemental oxygen, would initiate steroids and remdesivir -Follow-up procalcitonin, if low, discontinue antibiotics -prophylactic anticoagulation based on d-dimer per hospital protocol -trend ferritin, LDH, d-dimer, CRP every 2-3 days for risk stratification and to assess disease progression Farrukh Medina MD, FACP [facility] ([facility]) O: [phone] F: [phone]
[2020-08-10] MEDS ORDERED: ENOXAPARIN 40 MG/0.4 ML INJ SUB-Q SCH (22:00)
[2020-08-11 04:17] VITALS: BP 142/83
[2020-08-11] MEDS: cefTRIAXone/NS 2 GM/100 ML 2 GM/100 ML BAG IV SCH ×2 (05:26→05:40)
[2020-08-11 05:53] LABS: Basophils % (Auto) 0.2 % (0.0-1.8); Eosinophils % (Auto) 0.2 % (0.0-4.3); Hemoglobin 13.8 gm/dl (10.1-14.3); Lymphocytes # (Auto) 1.3 K/mm3 (1.2-5.4); Lymphocytes % (Auto) 17.9 % (13.4-35.0); Mean Corpuscular HGB Conc 35 % (30-34); Mean Corpuscular Volume 84 fl (79-97); Monocytes # (Auto) 0.6 K/mm3 (0.0-0.8); Monocytes % (Auto) 7.8 % (0.0-7.3); Platelet Count 253 K/mm3 (140-440); Red Blood Count 4.65 M/mm3 (3.65-5.03); Red Cell Distribution Width 13.7 % (13.2-15.2)
[2020-08-11 06:05] LABS: INR 0.99 (0.87-1.13)
[2020-08-11 07:09] LABS: BUN/Creatinine Ratio 20; Blood Urea Nitrogen 18 mg/dL (7-17); Calcium 8.8 mg/dL (8.4-10.2); Hemolysis Index 2
[2020-08-11] MEDS ORDERED: AZITHROMYCIN 250 MG TAB PO SCH (10:00)
[2020-08-11] MEDS ORDERED: ALBUTEROL 2.5 MG/3 ML NEBU IH PRN (11:12)
[2020-08-11] MEDS: ONDANSETRON 4 MG/2 ML INJ IV PRN (11:53)
--- NOTE | 2020-08-11 12:06 | Progress Note ---
Assessment and Plan Cultures: SARS CoV2 PCR: Positive A/P: 65-year-old female with hypertension and anxiety: #Bilateral pneumonia: Likely secondary to COVID-19. Patient not hypoxic. #COVID-19: Not hypoxic, no indication for therapy at the present time. Recs: -Monitor oxygen saturations, if patient develops hypoxia requiring supplemental oxygen, would initiate steroids and remdesivir -Follow-up procalcitonin, if low, discontinue antibiotics. Still pending -prophylactic anticoagulation based on d-dimer per hospital protocol -trend ferritin, LDH, d-dimer, CRP every 2-3 days for risk stratification and to assess disease progression Charla Shah MD [facility] ([facility]) O: [phone] F: [phone] Subjective Date of service: 08/11/20 Interval history: Afebrile, normal white count. Covid PCR positive. Objective - Exam Narrative Exam: Physical exam deferred due to PPE conservation strategy. Please refer to primary team's note. - Constitutional Vitals: Vital Signs Temp Pulse Resp BP Pulse Ox 98.2 F 58 L 18 142/83 96 08/11/20 04:16 08/11/20 04:16 08/11/20 04:16 08/11/20 04:16 08/11/20 11:08 Temperature -Last 24 Hours Temperature 98.2 F Temperature 98.2 F - Labs CBC & Chem 7: 08/11/20 05:32 08/11/20 05:32 Labs: Abnormal lab results 08/10/20 08/11/20 08/11/20 Range/Units Unknown 05:32 05:32 MCHC 35 H (30-34) % [place] % (Auto) 7.8 H (0.0-7.3) % Seg Neutrophils % 73.9 H (40.0-70.0) % Sodium 146 H (137-145) mmol/L Potassium 3.5 L (3.6-5.0) mmol/L Chloride 108.3 H (98-107) mmol/L BUN 18 H (7-17) mg/dL Coronavirus (PCR) Positive A (Negative)
--- NOTE | 2020-08-11 13:26 | Discharge Summary ---
Providers - Providers Date of Admission: 08/10/20 01:41 Attending physician: HAL PAREKH MD 08/10/20 03:05 Consult to Physician [CONS] Routine Comment: Consulting Provider: TANK VASQUEZ Physician Instructions: Reason For Exam: Pneumonia, Covid-19 positive Primary care physician: [facility]ACHIN[facility] Hospitalization Reason for admission: Shortness of breath Condition: Stable Hospital course: 65-year-old female with known history of hypertension and anxiety presenting to the emergency room today complaining of shortness of breath, cough dry cough and some chest pain over the last 5 days. Patient has been in the emergency room on 2 occasions with similar complaints and sent to my for evaluation. He was diagnosed with COVID-19 less than a week ago and chest x-ray done in the ER showed bilateral lower lobe infiltrates consistent with COVID- 19. Patient is here today complaining of worsening symptoms. She has had decreased appetite. She denies any vomiting or diarrhea. No abdominal pain. Work-up today, chest x-ray reveals persistent but mildly improved airspace disease. Patient has been admitted with pneumonia secondary to COVID-19. Patient this morning has clinically improved. She has some nausea but no further vomiting I did advise her on the importance of eating appropriately and stay with soft diet at this time. I also spoke to family member by member Srinivas morrison. She was seen by ID with no recommendation for oxygen at this time remdesivir or steroids. I discussed extensively with the patient about signs to watch for and also to obtain a pulse oximetry and monitor oxygen level. And if less than 90% to come to the ER. Acute gastroenteritis likely secondary to COVID-19 COVID-19 pneumonia without hypoxia Bilateral pneumonia likely viral Anxiety Disposition: DC-01 TO HOME OR SELFCARE Final Discharge Diagnosis (Prints w/discharge instructions): COVID-19 related gastroenteritis Time spent for discharge: 35 mins Core Measure Documentation - Palliative Care Palliative Care/ Comfort Measures: Not Applicable - Core Measures Any of the following diagnoses?: none Exam - Physical Exam Narrative exam: VITAL SIGNS: Reviewed. GENERAL: The patient appears normally developed, Vital signs as documented. HEAD: No signs of head trauma. EYES: Pupils are equal. Extraocular motions intact. EARS: Hearing grossly intact. MOUTH: Oropharynx is normal. NECK: No adenopathy, no JVD. CHEST: Chest with clear breath sounds bilaterally. No wheezes, rales, or rhonchi. CARDIAC: Regular rate and rhythm. S1 and S2, without murmurs, gallops, or rubs. VASCULAR: No Edema. Peripheral pulses normal and equal in all extremities. ABDOMEN: Soft, non tender and non distended. No rebound or guarding, and no masses palpated. Bowel Sounds normal. MUSCULOSKELETAL: Good range of motion of all major joints. Extremities without clubbing, cyanosis or edema. NEUROLOGIC EXAM: Alert and oriented x 3 No focal sensory or strength deficits. Speech normal. Follows commands. PSYCHIATRIC: Mood normal. SKIN: detail exam as documented in skin assessment - Constitutional Vitals: Temp Pulse Resp BP Pulse Ox 98.2 F 58 L 18 142/83 96 08/11/20 04:16 08/11/20 04:16 08/11/20 04:16 08/11/20 04:16 08/11/20 11:08 Plan Activity: advance as tolerated, fall precautions Diet: low fat (Soft diet) Special Instructions: record daily weights, record daily BP diary, record blood sugar diary Additional Instructions: Continue to wear your mask and social distance. Follow up with: PRIMARY CARE, [Primary Care Provider] - 3-5 Days TG BETANCUR MD [Staff Physician] - 7 Days Prescriptions: Ascorbic Acid [Vitamin C] 500 mg PO BID #60 tablet Azithromycin [Zithromax TAB] 500 mg PO QDAY #5 tablet Ondansetron [Zofran Odt] 4 mg PO Q8HR #30 tab.[email or web address]
== END 2020-08-11 14:15 | disposition home or self-care (01) ==
LOC: ED 22:03 → 3A 08-10 01:41 → INTOOBSV 08-10 01:41
PROVIDERS: ADMIT Internal Medicine Geriatric Medicine; ATTEND Internal Medicine
DX: U07.1 COVID-19 (principal); J12.82 Pneumonia due to coronavirus disease 2019; I10 Essential (primary) hypertension; K52.9 Noninfective gastroenteritis and colitis, unspecified; F41.9 Anxiety disorder, unspecified; G89.29 Other chronic pain
CPT/HCPCS: 36415; 71045; 80048; 82728; 82947; 83615; 84145; 84484; 85025; 85379; 85610; 85730; 86140; 93005; 96365; 96366; 96367; 96372; 96375; 96376; 99285; G0378; J0456; J0696; J1650; J2270; J2405; U0003; 96374

== ENCOUNTER 2020-11-17 20:43 | Inpatient (IN) | payer OTHER, SELFPAY ==
--- NOTE | 2020-11-17 20:52 | Event Note ---
ED Screening Note ED Screening Note: Marshallese interpretation by Mick security control assessor Patient states that she was cleaning something up off the floor after her grandkids and slipped and fell She denies any chest pain, dizziness, shortness of breath prior to the fall She has an obvious deformity to her right lower leg and a 1 cm laceration with no significant active bleeding She has had 2+ dorsalis pedis pulse in the right leg This initial assessment/diagnostic orders/clinical plan/treatment(s) is/are subject to change based on patients health status, clinical progression and re- assessment by fellow clinical providers in the ED. Further treatment and workup at subsequent clinical providers discretion. Patient/guardian urged not to elope from the ED as their condition may be serious if not clinically assessed and managed. Initial orders include: X-rays Main ED for eval
[2020-11-17] MEDS ORDERED: ceFAZolin/NS 1 GM/50 ML 1 GM/50 ML BAG IV ONE (21:25)
[2020-11-17] MEDS ORDERED: fentaNYL 100 MCG/2 ML INJ IV ONE (21:26)
--- NOTE | 2020-11-17 21:38 | XRay Report ---
RIGHT FOOT 2 VIEW(S) INDICATION / CLINICAL INFORMATION: obvious deformity after fall COMPARISON: None available. FINDINGS: BONES / JOINT(S): There are comminuted, displaced fractures of the distal tibia and fibula with later al dislocation at the tibiotalar joint. No significant arthritis. SOFT TISSUES: Diffuse subcutaneous edema throughout the ankle with some soft tissue gas noted.. ADDITIONAL FINDINGS: None. RIGHT ANKLE 2 VIEW(S) INDICATION / CLINICAL INFORMATION: obvious deformity after fall COMPARISON: None available. FINDINGS: BONES / JOINT(S): There are comminuted, displaced fractures of the distal tibia and fibula with later al dislocation at the tibiotalar joint. There is apex medial angulation of the distal fibular fractur e. There is inferior displacement of the medial malleolus fracture. No significant arthritis. SOFT TISSUES: Diffuse subcutaneous edema throughout the ankle with some soft tissue gas noted. ADDITIONAL FINDINGS: None. Signer Name: El Nieves MD Signed: 11/17/2020 9:33 PM Workstation Name: [id number]
--- NOTE | 2020-11-17 21:38 | Emergency Department Report ---
ED Extremity Problem HPI - General Chief complaint: Extremity Injury, Lower Stated complaint: POSSIBLE BROKEN RT LEG Time Seen by Provider: 11/17/20 20:50 Source: patient Mode of arrival: Ambulatory Limitations: Language Barrier - History of Present Illness Initial comments: 65-year-old female, history of hypertension, anxiety, COVID-19 infection, prese nts to ED with right ankle injury. Patient states she was trying to feed her dogs when she slipped on something wet. Patient has obvious deformity to the right ankle. She is able to move her toes. She denies any numbness. Patient has small puncture wound to the anteromedial aspect of the ankle. MD Complaint: extremity pain -: This evening Location: right, lower extremity Quality: aching Consistency: constant Improves with: immobilization Worsens with: weight bearing, walking, palpation Associated Symptoms: denies other symptoms - Related Data Home Medications Medication Instructions Recorded Confirmed Last Taken Losartan [Cozaar] 20 mg PO QDAY 08/11/20 11/18/20 Unknown Allergies Allergy/AdvReac Type Severity Reaction Status Date / Time No Known Allergies Allergy Verified 11/17/20 22:09 ED Review of Systems ROS: Stated complaint: POSSIBLE BROKEN RT LEG Other details as noted in HPI Comment: All other systems reviewed and negative Musculoskeletal: as per HPI Neurological: denies: numbness ED Past Medical Hx - Past Medical History Previous Medical History?: Yes Hx Hypertension: Yes Hx Psychiatric Treatment: Yes (Anxiety) Hx HIV: No Additional medical history: Chronic Pain - Surgical History Past Surgical History?: No - Social History Smoking Status: Never Smoker Substance Use Type: None - Medications Home Medications: Home Medications Medication Instructions Recorded Confirmed Last Taken Type Losartan [Cozaar] 20 mg PO QDAY 08/11/20 11/18/20 Unknown History ED Physical Exam - General Limitations: Language Barrier General appearance: alert, in no apparent distress - Head Head exam: Present: atraumatic, normocephalic - Eye Eye exam: Present: normal appearance, EOMI - ENT ENT exam: Present: mucous membranes moist - Neck Neck exam: Present: normal inspection - Respiratory Respiratory exam: Present: normal lung sounds bilaterally. Absent: respiratory distress - Cardiovascular Cardiovascular Exam: Present: regular rate, normal rhythm, other (DP pulses intact and palpable) - GI/Abdominal GI/Abdominal exam: Absent: distended - Extremities Exam Extremities exam: Present: other (Small puncture wound to the anteromedial aspect of the right ankle; right ankle joint very unstable with obvious deformity) - Neurological Exam Neurological exam: Present: alert, oriented X3, CN II-XII intact. Absent: motor sensory deficit (Able to flex and extend all toes on the right foot, sensation intact) - Psychiatric Psychiatric exam: Present: normal affect, normal mood - Skin Skin exam: Present: warm, dry, intact, normal color ED Course Vital Signs 11/17/20 11/17/20 11/17/20 21:00 21:16 21:30 Temperature 98.5 F Pulse Rate 62 61 67 Respiratory 16 17 18 Rate Blood Pressure 149/68 144/72 Blood Pressure 149/68 [Left] O2 Sat by Pulse 100 100 98 Oximetry 11/17/20 11/17/20 11/17/20 21:46 22:00 22:16 Temperature Pulse Rate 67 69 68 Respiratory 15 19 14 Rate Blood Pressure 144/72 153/78 153/78 Blood Pressure [Left] O2 Sat by Pulse 100 100 100 Oximetry 11/17/20 11/17/20 11/17/20 22:30 22:46 22:59 Temperature Pulse Rate 63 66 Respiratory 16 17 18 Rate Blood Pressure 145/70 145/70 Blood Pressure [Left] O2 Sat by Pulse 99 100 Oximetry 11/17/20 11/17/20 11/17/20 23:00 23:09 23:12 Temperature Pulse Rate 63 64 71 Respiratory 17 17 16 Rate Blood Pressure 140/73 140/73 140/73 Blood Pressure [Left] O2 Sat by Pulse 100 99 99 Oximetry 11/17/20 11/17/20 11/17/20 23:20 23:30 23:40 Temperature Pulse Rate 65 74 64 Respiratory 17 17 13 Rate Blood Pressure 140/73 153/78 140/73 Blood Pressure [Left] O2 Sat by Pulse 99 99 98 Oximetry - Consultations Consultation #1: 11/17/20 21:49 Spoke with Janet Cage. States will take patient to the OR in the morning. ED Medical Decision Making - Lab Data Result diagrams: 11/17/20 21:55 11/17/20 21:55 - Radiology Data Radiology results: report reviewed, image reviewed - Medical Decision Making 65-year-old female with open comminuted right ankle fracture. Wound is a small puncture wound on the anteromedial aspect of the right ankle. This wound irrigated with normal saline. Patient placed in a Antonio splint. Patient given pain medication and Ancef. I spoke with orthopedic surgeon, who states he will take patient to the OR in the morning. Patient will be admitted by hospitalist, Dr. Laird. - Differential Diagnosis Fracture, dislocation Critical care attestation.: If time is entered above; I have spent that time in minutes in the direct care of this critically ill patient, excluding procedure time. ED Disposition Clinical Impression: Open right ankle fracture Disposition: OP ADMIT IP TO THIS HOSP Is pt being admited?: Yes Condition: Stable Time of Disposition: 21:48
[2020-11-17] MEDS ORDERED: ACETAMINOPHEN 325 MG TAB PO PRN (22:06)
[2020-11-17] MEDS ORDERED: MAGNESIUM HYDROXIDE (MOM) ORAL LIQD UDC PO PRN (22:06)
[2020-11-17] MEDS ORDERED: ONDANSETRON 4 MG/2 ML INJ IV PRN (22:06)
[2020-11-17 22:12] LABS: Basophils # (Auto) 0.1 K/mm3 (0.0-0.1); Basophils % (Auto) 0.8 % (0.0-1.8); Eosinophils % (Auto) 0.4 % (0.0-4.3); Hematocrit 40.1 % (30.3-42.9); Hemoglobin 13.7 gm/dl (10.1-14.3); Lymphocytes # (Auto) 1.5 K/mm3 (1.2-5.4); Lymphocytes % (Auto) 13.5 % (13.4-35.0); Mean Corpuscular HGB Conc 34 % (30-34); Mean Corpuscular Volume 89 fl (79-97); Monocytes # (Auto) 0.7 K/mm3 (0.0-0.8); Monocytes % (Auto) 6.3 % (0.0-7.3); Platelet Count 227 K/mm3 (140-440); Red Cell Distribution Width 14.5 % (13.2-15.2)
[2020-11-17 22:21] LABS: INR 0.97 (0.87-1.13)
--- NOTE | 2020-11-17 22:21 | History and Physical Report ---
History of Present Illness Date of examination: 11/17/20 Date of admission: 11/17/2020 Chief complaint: Right ankle Pain History of present illness: 65 year old female with known history of hypertension,anxiety and previous history of COVID-19 presents to the R with right ankle injury .She was trying to feed her dogs when she suddenly tripped and fell. She denies any head injury and no loss of consciousness. No chest pain or shortness of breath. No hematuria or dysuria. Patient sustained a small puncture wound to the medial aspect of her right ankle. Last tetanus vaccination was about 2 years ago. Work-up in the emergency room today, x-ray of the right ankle reveals inferior displacement of the medial malleolus fracture Orthopedic surgeon Dr. Centeno has been consulted by the ER physician. Past History Past Medical History: hypertension, other (Anxiety) Past Surgical History: No surgical history Social history: no significant social history Family history: no significant family history Medications and Allergies Allergies Allergy/AdvReac Type Severity Reaction Status Date / Time No Known Allergies Allergy Verified 11/17/20 22:09 Home Medications Medication Instructions Recorded Confirmed Last Taken Type ALPRAZolam [Xanax TAB] 0.5 mg PO BID PRN #10 tab 12/05/16 08/11/20 Unknown Rx Cholecalciferol (Vitamin D3) 5,000 unit PO DAILY #60 capsule 08/05/20 08/11/20 Unknown Rx [Vitamin D3 5,000 UNIT] predniSONE [Deltasone] 40 mg PO QDAY #8 tablet 08/07/20 08/11/20 Unknown Rx Ascorbic Acid [Vitamin C] 500 mg PO BID #60 tablet 08/11/20 Unknown Rx Azithromycin [Zithromax TAB] 500 mg PO QDAY #5 tablet 08/11/20 Unknown Rx Losartan [Cozaar] 25 mg PO QDAY 08/11/20 08/11/20 Unknown History Ondansetron [Zofran Odt] 4 mg PO Q8HR #30 tab.rapdis 08/11/20 Unknown Rx Active Meds: Active Medications Acetaminophen (Acetaminophen 325 Mg Tab) 650 mg PO Q4H PRN PRN Reason: Pain MILD(1-3)/Fever >100.5/ESPINO Sodium Chloride (Nacl 0.9% 1000 Ml) 1,000 mls @ 75 mls/hr IV DIRECT SILVIA Magnesium Hydroxide (Magnesium Hydroxide (Mom) Oral Liqd Udc) 30 ml PO Q4H PRN PRN Reason: Constipation Morphine Sulfate (Morphine 2 Mg/1 Ml Inj) 2 mg IV Q4H PRN PRN Reason: Pain, Moderate (4-6) Ondansetron HCl (Ondansetron 4 Mg/2 Ml Inj) 4 mg IV Q8H PRN PRN Reason: Nausea And Vomiting Sodium Chloride (Sodium Chloride 0.9% 10 Ml Flush Syringe) 10 ml IV BID SILVIA Sodium Chloride (Sodium Chloride 0.9% 10 Ml Flush Syringe) 10 ml IV PRN PRN PRN Reason: LINE FLUSH Review of Systems Constitutional: no fever, no chills Ears, nose, mouth and throat: no nasal congestion, no sore throat Cardiovascular: no chest pain, no palpitations Respiratory: no cough, no shortness of breath Gastrointestinal: no nausea, no vomiting, no diarrhea Genitourinary Female: no dysuria, no hematuria Musculoskeletal: no neck pain, no low back pain Integumentary: no rash, no pruritis Neurological: no headaches, no confusion Psychiatric: no anxiety, no depression Endocrine: no polyphagia, no polydipsia, no polyuria, no nocturia Exam - Constitutional Vitals: Temp Pulse Resp BP Pulse Ox 98.5 F 62 16 149/68 100 11/17/20 21:00 11/17/20 21:00 11/17/20 21:00 11/17/20 21:00 11/17/20 21:00 General appearance: Present: no acute distress, well-nourished - EENT Eyes: Present: PERRL, EOM intact. Absent: scleral icterus ENT: hearing intact, clear oral mucosa, dentition normal - Neck Neck: Present: supple, normal ROM - Respiratory Respiratory effort: normal Respiratory: bilateral: CTA - Cardiovascular Rhythm: regular Heart Sounds: Present: S1 & S2. Absent: gallop, systolic murmur, diastolic mu rmur, rub, click - Extremities Extremities: no ischemia, pulses intact, pulses symmetrical, No edema, normal temperature, normal color, Full ROM Extremity abnormal: deformity (Open wound on medial aspect of right ankle), tenderness Peripheral Pulses: within normal limits - Abdominal General gastrointestinal: Present: soft, non-tender, non-distended, normal bowel sounds. Absent: mass - Integumentary Integumentary: Present: clear, warm, dry, normal turgor. Absent: rash - Musculoskeletal Musculoskeletal: strength equal bilaterally - Psychiatric Psychiatric: appropriate mood/affect, intact judgment & insight, memory intact, cooperative - Neurologic Neurologic: CNII-XII intact, no focal deficits, moves all extremities Results - Labs CBC & Chem 7: 11/17/20 21:55 11/17/20 21:55 Labs: Abnormal lab results 11/17/20 Range/Units 21:55 WBC 11.1 H (4.5-11.0) K/mm3 Seg Neutrophils % 79.0 H (40.0-70.0) % Seg Neutrophils # 8.8 H (1.8-7.7) K/mm3 Assessment and Plan - Patient Problems (1) Open right ankle fracture Current Visit: Yes Status: Acute Plan to address problem: Patient admitted and placed on analgesic medication. Ankle to be placed on a splint meanwhile. Orthopedic surgeon Dr. Centeno has been consulted for evaluation and recommendations. (2) DVT prophylaxis Current Visit: No Status: Acute Plan to address problem: Patient placed on Sequential compression device. (3) Full code status Current Visit: No Status: Acute Plan to address problem: Patient is full code.
[2020-11-17 22:22] LABS: Partial Thromboplastin Time 28.7 Sec. (24.2-36.6)
--- NOTE | 2020-11-17 22:58 | XRay Report ---
CHEST 1 VIEW 11/17/2020 9:48 PM INDICATION / CLINICAL INFORMATION: pre-op. COMPARISON: None available. FINDINGS: SUPPORT DEVICES: None. HEART / MEDIASTINUM: No significant abnormality. LUNGS / PLEURA: No significant pulmonary or pleural abnormality. No pneumothorax. ADDITIONAL FINDINGS: No significant additional findings. IMPRESSION: 1. No acute findings. Signer Name: Bhupinder Otoole MD Signed: 11/17/2020 10:53 PM Workstation Name: [id number]
[2020-11-17] MEDS: TETANUS,DIPHTHERIA TOXOID ADULT 0.5 ML INJ IM ONE ×2 (23:43→23:48)
[2020-11-18] MEDS: MORPHINE 2 MG/1 ML INJ IV PRN ×2 (00:15→05:12)
[2020-11-18] MEDS: SODIUM CHLORIDE 0.9% 1000 ML 1,000 ML IV SCH ×2 (05:21→21:33)
[2020-11-18] MEDS ORDERED: LACTATED RINGERS 1,000 ML IV SCH (12:45)
[2020-11-18] MEDS ORDERED: propofoL 200 MG/20 ML VIAL IV ONE (12:51)
[2020-11-18] MEDS ORDERED: HYDROmorphone 1 MG/1 ML INJ ONE (12:51)
[2020-11-18] MEDS ORDERED: LIDOCAINE MPF (2%) 20 MG/1 ML VIAL 5 ML ONE (12:52)
[2020-11-18] MEDS ORDERED: ceFAZolin/STERILE WATER 2 GM/20 ML SYRINGE IV NR (13:00)
[2020-11-18] MEDS ORDERED: ONDANSETRON 4 MG/2 ML INJ IV PRN (13:16)
--- NOTE | 2020-11-18 13:19 | Anesthesia Consultation ---
Anesthesia Consult and Med Hx Date of service: 11/18/20 - Airway Anesthetic Teeth Evaluation: Good ROM Head & Neck: Adequate Mental/Hyoid Distance: Adequate Mallampati Class: Class II Intubation Access Assessment: Probably Good - Pre-Operative Health Status ASA Pre-Surgery Classification: ASA2 Proposed Anesthetic Plan: General - Pre-Anesthesia Comment Pre-Anesthesia Comments: Consented for post op popliteal + adductor canal blocks for analgesia if pain poorly controlled, per surgeon request. - Pulmonary Hx Smoking: No Hx Respiratory Symptoms: No Hx Pneumonia: Yes (COVID PNA w/ hospitalization 3 months ago; resolved) - Cardiovascular System Hx Hypertension: Yes Hx Heart Attack/AMI: No Hx Percutaneous Transluminal Coronary Angioplasty (PTCA): No - Central Nervous System CVA: No Hx Psychiatric Problems: Yes (anxiety) - Endocrine Hx Renal Disease: No Hx Liver Disease: No Hx Insulin Dependent Diabetes: No Hx Non-Insulin Dependent Diabetes: No Hx Thyroid Disease: No - Other Systems Hx Obesity: No - Additional Comments Anesthesia Medical History Comments: Hx mild PONV. [facility] ID #[id number] used for interview and consent.
--- NOTE | 2020-11-18 13:20 | Anesthesia Day of Surgery ---
Anesthesia Day of Surgery - Day of Surgery Patient Examined: Yes Patient H&P Reviewed: Yes Patient is NPO: Yes
[2020-11-18] MEDS ORDERED: KETOROLAC 30 MG/1 ML INJ ONE (13:51)
[2020-11-18] MEDS ORDERED: NEOMY 40 MG/POLYMYXIN B 200,000 UNITS/ML (GU) AMPULE IR ONE ×2 (13:51→14:51)
[2020-11-18] MEDS ORDERED: SODIUM CHLORIDE 0.9% 0 ML ONE ×2 (13:56)
[2020-11-18] MEDS ORDERED: BUPIVACAINE/PF (0.5%) 5 MG/1 ML 30 ML VIAL INFILTRATI ONE (13:56)
[2020-11-18] MEDS ORDERED: MIDAZOLAM 2 MG/2 ML INJ IV NR (14:00)
[2020-11-18] MEDS ORDERED: SCOPOLAMINE TRANSDERMAL PATCH 72 HR TD NR (14:00)
--- NOTE | 2020-11-18 14:57 | Progress Note ---
Assessment and Plan --Open right ankle fracture Patient admitted and placed on analgesic medication. Ankle to be placed on a splint meanwhile. Orthopedic surgeon Dr. Centeno has been consulted for evaluation and recommendations. --Hypertension: Hydralazine IV as needed for SBP greater than 160 --DVT prophylaxis, Lovenox following surgery --Full CODE STATUS Brief history: 65 year old female with known history of hypertension,anxiety and previous history of COVID-19 presents to the ER with right ankle injury while trying to feed her dogs when she suddenly tripped and fell. Work-up in the emergency room including x-ray of the right ankle reveals inferior displacement of the medial malleolus fracture Orthopedic surgeon Dr. Centeno has been consulted by the ER physician and patient was admitted for further evaluation and management. Daily clinical course: 11/18/20: Orthopedic surgeon consulted, continue pain management as needed. Surgery today. Subjective Date of service: 11/18/20 Interval history: Patient seen and examined. Medical records and medication list reviewed. No acute event overnight noted by the RN. Patient denies any chest pain or difficulty breathing. Complains of right ankle pain Plan for surgery today Discussed plan of care at bedside with patient. Objective - Exam Narrative Exam: GENERAL: well-developed and well-nourished elderly female lying on bed appeared to be in no discomfort. HEENT: Normocephalic. Atraumatic. No conjunctival congestion or icterus. Patient has moist mucous membranes. NECK: Supple. Trachea midline. CHEST/LUNGS: Clear to auscultated bilaterally, breathing nonlabored. No wheezes crackles or rhonchi. HEART/CARDIOVASCULAR: Regular in rate and rhythm. S1 and S2 positive. ABDOMEN: Abdomen is soft, nontender. Patient has normal bowel sounds. SKIN: There is no rash. Warm and dry. NEURO: No focal motor deficit. Follows command. MUSCULOSKELETAL: Right lower extremity with dressing and limited movement EXTRIMITY: No edema, no cyanosis or clubbing. PSYCH: Cooperative. - Constitutional Vitals: Vital Signs - 12hr 11/18/20 11/18/20 11/18/20 05:05 05:56 12:40 Temperature 98.1 F 98.1 F Pulse Rate 60 68 Pulse Rate [ 60 Right Brachial] Respiratory 18 18 16 Rate Blood Pressure 139/72 143/81 O2 Sat by Pulse 97 97 99 Oximetry - Labs CBC & Chem 7: 11/17/20 21:55 11/17/20 21:55 Labs: Abnormal lab results 11/17/20 11/17/20 Range/Units 21:55 21:55 WBC 11.1 H (4.5-11.0) K/mm3 Seg Neutrophils % 79.0 H (40.0-70.0) % Seg Neutrophils # 8.8 H (1.8-7.7) K/mm3 BUN 22 H (7-17) mg/dL Glucose 110 H (65-100) mg/dL
[2020-11-18] MEDS ORDERED: LACTATED RINGERS 1,000 ML ONE (15:24)
[2020-11-18] MEDS ORDERED: ONDANSETRON 4 MG/2 ML INJ ONE (15:25)
[2020-11-18] MEDS: HYDROmorphone 1 MG/1 ML INJ IV PRN ×3 (15:59→23:05)
--- NOTE | 2020-11-18 16:15 | XRay Report ---
XR ankle 2V RT INDICATION / CLINICAL INFORMATION: ORIF RT ANKLE. COMPARISON: None available. FINDINGS: ORIF of medial and lateral malleolar fractures. There appears to be a fracture of the posterior malle olus. Fluoroscopy time: 13 seconds. Fluoroscopic images: 2. IMPRESSION: ORIF of medial and lateral malleolar fractures. There appears to be a fracture of the posterior malle olus as well Signer Name: Curt Nieves MD FACPham Signed: 11/18/2020 4:11 PM Workstation Name: [email or web address]
--- NOTE | 2020-11-18 16:20 | Consultation ---
History of Present Illness - HPI Consult date: 11/18/20 Consult reason: fracture History of present illness: 65-year-old female who comes in complaining of right ankle pain swelling and deformity after slip and fall injury at home patient states she was trying to feed her dogs when she fell complained of immediate pain and deformity unable to bear weight she [facility] revealed a displaced bimalleolar ankle fracture no other complaints noted Past History Past Medical History: hypertension, other (Anxiety) Past Surgical History: No surgical history Social history: no significant social history Family history: no significant family history Medications and Allergies Allergies Allergy/AdvReac Type Severity Reaction Status Date / Time No Known Allergies Allergy Verified 11/17/20 22:09 Home Medications Medication Instructions Recorded Confirmed Last Taken Type Losartan [Cozaar] 20 mg PO QDAY 08/11/20 11/18/20 Unknown History Active Meds: Active Medications Acetaminophen (Acetaminophen 325 Mg Tab) 650 mg PO Q4H PRN PRN Reason: Pain MILD(1-3)/Fever >100.5/ESPINO Cefazolin Sodium (Cefazolin/Sterile Water 2 Gm/20 Ml Syringe) 2 gm IV PREOP NR Stop: 11/18/20 23:00 Hydromorphone HCl (Hydromorphone 1 Mg/1 Ml Inj) 0.5 mg IV Q10MIN PRN PRN Reason: Pain , Severe (7-10) Stop: 11/19/20 13:15 Sodium Chloride (Nacl 0.9% 1000 Ml) 1,000 mls @ 75 mls/hr IV DIRECT SILVIA Last Admin: 11/18/20 05:21 Dose: 75 mls/hr Documented by: Lactated Ringer's (Lactated Ringers) 1,000 mls @ 100 mls/hr IV DIRECT SILVIA Stop: 11/19/20 12:44 Last Admin: 11/18/20 13:30 Dose: 100 mls/hr Documented by: Magnesium Hydroxide (Magnesium Hydroxide (Mom) Oral Liqd Udc) 30 ml PO Q4H PRN PRN Reason: Constipation Midazolam HCl (Midazolam 2 Mg/2 Ml Inj) 2 mg IV PREOP NR Stop: 11/18/20 23:59 Last Admin: 11/18/20 13:42 Dose: 2 mg Documented by: Morphine Sulfate (Morphine 2 Mg/1 Ml Inj) 2 mg IV Q4H PRN PRN Reason: Pain, Moderate (4-6) Last Admin: 11/18/20 05:12 Dose: 2 mg Documented by: Ondansetron HCl (Ondansetron 4 Mg/2 Ml Inj) 4 mg IV Q8H PRN PRN Reason: Nausea And Vomiting Ondansetron HCl (Ondansetron 4 Mg/2 Ml Inj) 4 mg IV ONCE PRN PRN Reason: Nausea And Vomiting Scopolamine (Scopolamine Transdermal Patch 72 Hr) 1 each TD PREOP NR Stop: 11/19/20 13:59 Last Admin: 11/18/20 13:40 Dose: 1 each Documented by: Sodium Chloride (Sodium Chloride 0.9% 10 Ml Flush Syringe) 10 ml IV BID SILVIA Last Admin: 11/18/20 10:46 Dose: 10 ml Documented by: Sodium Chloride (Sodium Chloride 0.9% 10 Ml Flush Syringe) 10 ml IV PRN PRN PRN Reason: LINE FLUSH Physical Examination - Physical exam Narrative exam: On physical examination significant musculoskeletal findings relates to the lo wer extremity on the right side patient is noted to have obvious deformity at the ankle there is a small puncture wound noted medially with some slight bloody drainage there is good capillary refill and dorsalis pedis pulse active range of motion significantly decreased secondary to pain Eyes: PERRL ENT: Positive: clear oral mucosa Respiratory effort: normal Respiratory: bilateral: CTA Rhythm: regular Heart Sounds: Positive: S1 & S2 General gastrointestinal: Positive: soft, non-tender, non-distended, normal bowel sounds Integumentary: clear, warm, dry Neurologic: Positive: CNII-XII intact, moves all extremities, gait normal. Negative: focal deficits - Cervical Spine Neck pain: none Tenderness with palpation: none Full ROM: yes ROM: flexion: normal ROM: extension: normal ROM: rotation right: normal ROM: rotation left: normal ROM: lateral flexion right: normal ROM: lateral flexion left: normal - Lumbar Spine Back pain: none Tenderness with palpation: none Appearance: normal Full ROM: yes ROM: flexion: normal ROM: extension: normal ROM: rotation right: normal ROM: rotation left: normal ROM: lateral flexion right: normal ROM: lateral flexion left: normal Assessment and Plan Displaced right bimalleolar fracture open Patient will require irrigation debridement followed by internal fixation of the bimalleolar ankle fracture
--- NOTE | 2020-11-18 16:32 | Procedure Note ---
Date of procedure: 11/18/20 Pre-op diagnosis: Displaced right bimalleolar ankle fracture Post-op diagnosis: same Procedure: Open reduction internal fixation right ankle fracture Procedure The patient was brought to the OR after having a femoral nerve block in preop holding for Postop pain management. The patient was placed on the OR table in supine position following induction and intubation the patient's right lower extremity was prepped and draped in the usual sterile manner. A timeout procedure was done to identify the patient and the correct operative site. The leg was then exsanguinated followed by inflation of the pneumatic tourniquet to 300 mmHg. A lateral incision was made over the distal fibula this is taken down sharply through skin and subcutaneous the fracture site was identified and using gentle manipulation the fracture fragments were reduced into a more anatomic position next a 7-hole one third semitubular plate was applied with screws of appropriate length and AP and lateral view was obtained and showed good reduction at the fracture and placement of the hardware. Next a curvlinear incision was made over the medial malleolus is then taken down sharply through skin and subcutaneous the fracture was identified and again using gentle manipulation I was held in place by way of a bone clamp next 2 small threaded K wires were used followed by placement of our 4.0 50 mm length cannulated screws again AP and lateral views were obtained showing good reduction medially. The wound was copiously irrigated the medial and lateral incisions were closed in a standard routine fashion postoperative dressings were applied as well as a well- padded posterior mold the patient tolerated the procedure there were no complications and he was sent to postanesthesia recovery in stable condition Anesthesia: MAC, regional Surgeon: JURGEN YOU ([place] 1st assist) Estimated blood loss: minimal Pathology: none Condition: stable Disposition: PACU
--- NOTE | 2020-11-18 16:59 | Post Anesthesia Evaluation ---
- Post Anesthesia Evaluation Patient Participated: Yes Airway Patent: Yes Stable Respiratory Function: Yes Nausea/Vomiting: No Temp > 96.8F: Yes Pain Manageable: Yes Adequeate Hydration: Yes Anesthesia Complications: No Block Receding Appropriately: Not Applicable (pain well controlled w/o regional block)
[2020-11-19] MEDS: SODIUM CHLORIDE 0.9% 1000 ML 1,000 ML IV SCH (12:45)
[2020-11-19] MEDS: MORPHINE 2 MG/1 ML INJ IV PRN ×2 (12:45→22:49)
--- NOTE | 2020-11-19 15:24 | Progress Note ---
Assessment and Plan --Open right ankle fracture Patient admitted and placed on analgesic medication. Orthopedic surgeon Dr. Centeno has been consulted for evaluation and recommendations. s/p Open reduction internal fixation right ankle fracture Consulted PT for gait training --Hypertension: Hydralazine IV as needed for SBP greater than 160 --DVT prophylaxis, Lovenox following surgery --Full CODE STATUS Brief history: 65 year old female with known history of hypertension,anxiety and previous history of COVID-19 presents to the ER with right ankle injury while trying to feed her dogs when she suddenly tripped and fell. Work-up in the emergency room including x-ray of the right ankle reveals inferior displacement of the medial malleolus fracture Orthopedic surgeon Dr. Centeno has been consulted by the ER physician and patient was admitted for further evaluation and management. Daily clinical course: 11/18/20: Orthopedic surgeon consulted, continue pain management as needed. Surgery today. 11/19/20; Open reduction internal fixation right ankle fracture yesterday by Dr. Centeno. Patient tolerated the procedure well. Discussed with patient daughter by phone today. Waiting for PT eval. continue supportive care and pain management. Subjective Date of service: 11/19/20 Interval history: Patient seen and examined. Medical records and medication list reviewed. No acute event overnight noted by the RN. Patient denies any chest pain or difficulty breathing. Tolerating diet Status post surgery yesterday for right ankle fracture Pending PT eval Discussed plan of care at bedside with patient and with patient daughter by phone. Objective - Exam Narrative Exam: GENERAL: well-developed and well-nourished elderly female lying on bed appeared to be in no discomfort. HEENT: Normocephalic. Atraumatic. No conjunctival congestion or icterus. Patient has moist mucous membranes. NECK: Supple. Trachea midline. CHEST/LUNGS: Clear to auscultated bilaterally, breathing nonlabored. No wheezes crackles or rhonchi. HEART/CARDIOVASCULAR: Regular in rate and rhythm. S1 and S2 positive. ABDOMEN: Abdomen is soft, nontender. Patient has normal bowel sounds. SKIN: There is no rash. Warm and dry. NEURO: No focal motor deficit. Follows command. MUSCULOSKELETAL: Right lower extremity with dressing and limited movement EXTRIMITY: No edema, no cyanosis or clubbing. PSYCH: Cooperative. - Constitutional Vitals: Vital Signs - 12hr 11/19/20 11/19/2011/19/21 04:26 04:27 04:31 Temperature 98.6 F Pulse Rate 64 52 L Respiratory 18 Rate Blood Pressure 110/48 116/45 O2 Sat by Pulse 82 L 95 Oximetry 11/19/20 11/19/20 11:28 12:45 Temperature 99.4 F Pulse Rate 59 L Respiratory 16 20 Rate Blood Pressure 138/66 O2 Sat by Pulse 99 Oximetry - Labs CBC & Chem 7: 11/17/20 21:55 11/17/20 21:55
[2020-11-20] MEDS: SODIUM CHLORIDE 0.9% 1000 ML 1,000 ML IV SCH ×2 (03:08→10:57)
[2020-11-20] MEDS: MORPHINE 2 MG/1 ML INJ IV PRN (10:57)
[2020-11-20] MEDS ORDERED: oxyCODONE /ACETAMINOPHEN 5-325MG TAB PO PRN (12:54)
--- NOTE | 2020-11-20 12:54 | Discharge Summary ---
Providers - Providers Date of Admission: 11/18/20 08:58 Date of discharge: 11/20/20 Attending physician: GIOVANNA LIGHT 11/17/20 21:36 Consult to Physician [CONS] Stat Comment: Consulting Provider: JURGEN CENTENO Physician Instructions: Reason For Exam: ankle fx 11/19/20 13:34 Physical Therapy Evaluation and Treat [CONS] Routine Comment: Reason For Exam: gait training Weight bearing status?: Partial wt bearing Assistive devices?: Yes If so list: Walker Primary care physician: FLOOR ATTENDANT Hospitalization Condition: Stable Pertinent studies: Ankle XRY, foot xry, chest xry Hospital course: 65 year old female with known history of hypertension,anxiety and previous history of COVID-19 presents to the ER with right ankle injury while trying to feed her dogs when she suddenly tripped and fell. Work-up in the emergency room including x-ray of the right ankle reveals inferior displacement of the medial malleolus fracture Orthopedic surgeon Dr. Centeno has been consulted by the ER physician and patient was admitted for further evaluation and management. Daily clinical course: 11/18/20: Orthopedic surgeon consulted, continue pain management as needed. Surgery today. 11/19/20; Open reduction internal fixation right ankle fracture yesterday by Dr. Centeno. Patient tolerated the procedure well. Discussed with patient daughter by phone today. Waiting for PT eval. continue supportive care and pain management. 11/20/20: Patient clinically stable. Plan to DC home with home health once cleared by physical therapy. Patient advised on following was discussed above plan of care and discharge planning, they verbalized understanding. Patient will follow up with Dr. Centeno in 1 week. Disposition: [id number] HOME [facility] Final Discharge Diagnosis (Prints w/discharge instructions): --Open right ankle fracture, status post open reduction and internal fixation. --Hypertension, diet-controlled. --Anxiety Time spent for discharge: 34 minutes Core Measure Documentation - Palliative Care Palliative Care/ Comfort Measures: Not Applicable - Core Measures Any of the following diagnoses?: none Exam - Physical Exam Narrative exam: GENERAL: well-developed and well-nourished elderly female lying on bed appeared to be in no discomfort. HEENT: Normocephalic. Atraumatic. No conjunctival congestion or icterus. Patient has moist mucous membranes. NECK: Supple. Trachea midline. CHEST/LUNGS: Clear to auscultated bilaterally, breathing nonlabored. No wheezes crackles or rhonchi. HEART/CARDIOVASCULAR: Regular in rate and rhythm. S1 and S2 positive. ABDOMEN: Abdomen is soft, nontender. Patient has normal bowel sounds. SKIN: There is no rash. Warm and dry. NEURO: No focal motor deficit. Follows command. MUSCULOSKELETAL: Right lower extremity with dressing and limited movement EXTRIMITY: No edema, no cyanosis or clubbing. PSYCH: Cooperative. - Constitutional Vitals: Temp Pulse Resp BP Pulse Ox 99.8 F H 59 L 20 137/66 99 11/20/20 03:58 11/20/20 03:58 11/20/20 10:57 11/20/20 03:58 11/20/20 03:58 Plan Activity: advance as tolerated, fall precautions Weight Bearing Status: Non-Weight Bearing Diet: low fat, low salt Wound: per your surgeon's advice Special Instructions: physical therapy, home health RN Follow up with: PRIMARY MD DIONISIO [Primary Care Provider] - 3-5 Days JURGEN CENTENO MD [Staff Physician] - 7 Days Prescriptions: oxyCODONE /ACETAMINOPHEN [Percocet 5/325] 1 tab PO Q6HR PRN #30 tablet PRN Reason: Pain
[2020-11-20 18:43] VITALS: BP 137/74
== END 2020-11-20 20:18 | disposition home health service (06) | DRG 494 ==
LOC: ED 20:43 → 3A 21:52 → OBSVTOIN 11-18 08:58
PROVIDERS: ADMIT Internal Medicine Geriatric Medicine; ATTEND Internal Medicine
PROC: 0QSG04Z Reposition Right Tibia with Internal Fixation Device, Open Approach (ICD-10-PCS; principal; 2020-11-18)
DX: S82.841A Displaced bimalleolar fracture of right lower leg, initial encounter for closed fracture (principal); I10 Essential (primary) hypertension; F41.9 Anxiety disorder, unspecified; W01.0XXA Fall on same level from slipping, tripping and stumbling without subsequent striking against object, initial encounter; Z86.16 Personal history of COVID-19; Y93.89 Activity, other specified; Y92.89 Other specified places as the place of occurrence of the external cause; Y99.8 Other external cause status; Z79.899 Other long term (current) drug therapy
CPT/HCPCS: 36415; 71045; 80048; 85025; 85610; 85730; 87641; 90714; 96374; 96375; G0378; C1713; J0690; J1170; J1885; J2250; J2270; J2405; J2704; J3010; J7030; J7120